=== PATIENT | male | born 1995 | race Hispanic/Latino ===

== ENCOUNTER 2020-12-09 21:57 | Emergency (ER) | payer BC ==
[2020-12-09] MEDS ORDERED: DIAZEPAM 5 MG TABLET ONE (22:27)
[2020-12-09] MEDS ORDERED: FENTANYL CITRATE PF 50 MCG/1 ML 2ML VIAL ONE (22:28)
== END 2020-12-09 22:56 | disposition home or self-care (01) ==
LOC: EDH 21:57
DX: M54.40 Lumbago with sciatica, unspecified side (principal); Z79.899 Other long term (current) drug therapy
CPT/HCPCS: 96372; 99284; J3010